=== PATIENT | male | born 1965 | race Caucasian/White ===

== ENCOUNTER 2017-03-02 21:16 | Emergency (ER) | payer OTHER ==
[~2017-03-02] VITALS: Ht 177.8 cm; Wt 122.5 kg
[2017-03-02 21:50] VITALS: BP_SYST 136
[2017-03-02] MEDS ORDERED: NACL 0.9% 1,000 ML IV ONE (22:23)
[2017-03-02] MEDS ORDERED: KETOROLAC TROMETHAMINE 30 MG VIAL IVP ONE (22:30)
[2017-03-02] MEDS ORDERED: ONDANSETRON HCL 4 MG/2 ML VIAL IVP ONE (22:30)
[2017-03-02 22:46] LABS: BILIRUBIN,URINE NEGATIVE (NEGATIVE); BLOOD, URINE NEGATIVE (NEGATIVE); CLARITY/URINE CLEAR (CLEAR); COLOR,URINE YELLOW (YELLOW); GLUCOSE,URINE 3+ (NEGATIVE); KETONES,URINE NEGATIVE (NEGATIVE); LEUKOCYTE ESTERASE ,URINE NEGATIVE (NEGATIVE); NITRITE, URINE NEGATIVE (NEGATIVE); PROTEIN URINE NEGATIVE (NEGATIVE); UROBILINOGEN,URINE 0.2 (0.2-1.0)
[2017-03-02 22:56] LABS: BACTERIA,URINE FEW /HPF (None Seen); RBC,URINE 0-3 /HPF (0-3); WBC,URINE 0-3 /HPF (0-3)
[2017-03-02 22:59] LABS: BASOPHILS % (AUTO) 0.3 % (0.0-2.0); EOSINOPHILS # (AUTO) 0.2 K/uL (0.0-0.4); EOSINOPHILS % (AUTO) 1.7 % (0.0-4.0); HEMATOCRIT 47.4 % (36-54); HEMOGLOBIN 15.7 g/dL (14.0-18.0); LYMPHOCYTES # (AUTO) 2.3 K/uL (1.0-5.5); LYMPHOCYTES % (AUTO) 18.9 % (20.5-51.5); MEAN CORPUSCULAR HEMOGLOBIN 32 pg (27-31); MEAN CORPUSCULAR HGB CONC 33 % (32-36); MEAN CORPUSCULAR VOLUME 97 fL (79.0-98.0); MONOCYTES # (AUTO) 0.7 K/uL (0.0-1.0); MONOCYTES % (AUTO) 6.1 % (1.7-9.3); NEUTROPHILS # (AUTO) 9.1 K/uL (1.8-7.7); PLATELET COUNT (AUTO) 190 K/uL (130-430); RED BLOOD CELL COUNT(AUTO) 4.89 MIL/uL (4.2-6.2); RED CELL DISTRIBUTION WIDTH 12.2 % (9.0-15.0); WHITE BLOOD COUNT (AUTO) 12.3 K/uL (4.8-10.8)
[2017-03-02 23:04] LABS: CALCIUM 9.3 mg/dL (8.4-11.0); CREATININE 0.87 mg/dL (0.55-1.30); POTASSIUM 3.6 mmol/L (3.5-5.1)
[2017-03-02 23:09] LABS: ALBUMIN 3.3 g/dL (3.4-4.8); TOTAL BILIRUBIN 0.3 mg/dL (0.0-1.0)
[2017-03-03 01:12] VITALS: BP_SYST 140
== END 2017-03-03 01:12 | disposition home or self-care (01) ==
LOC: SED 21:16
DX: N20.0 Calculus of kidney (principal); K57.32 Diverticulitis of large intestine without perforation or abscess without bleeding; R03.0 Elevated blood-pressure reading, without diagnosis of hypertension; Z87.442 Personal history of urinary calculi
CPT/HCPCS: 36415; 74176; 80053; 81000; 82962; 85025; 96361; 96374; 96375; 99285; J1885; J2405; J7030

== ENCOUNTER 2017-09-15 08:41 | Inpatient (IN) | payer MEDICAID, OTHER ==
[~2017-09-15] VITALS: Ht 177.8 cm; Wt 124.7 kg
[2017-09-15 08:41] VITALS: BP_SYST 154
[2017-09-15] MEDS ORDERED: ASPIRIN 81 MG TAB.CHEW PO ONE (09:15)
[2017-09-15 09:35] LABS: BASOPHILS # (AUTO) 0.1 K/uL (0.0-0.2); BASOPHILS % (AUTO) 1.6 % (0.0-2.0); EOSINOPHILS # (AUTO) 0.1 K/uL (0.0-0.4); EOSINOPHILS % (AUTO) 1.5 % (0.0-4.0); HEMOGLOBIN 16.1 g/dL (14.0-18.0); LYMPHOCYTES # (AUTO) 1.2 K/uL (1.0-5.5); LYMPHOCYTES % (AUTO) 14.9 % (20.5-51.5); MEAN CORPUSCULAR HEMOGLOBIN 34 pg (27-31); MEAN CORPUSCULAR HGB CONC 34 % (32-36); MEAN CORPUSCULAR VOLUME 98 fL (79.0-98.0); MONOCYTES # (AUTO) 0.5 K/uL (0.0-1.0); MONOCYTES % (AUTO) 5.9 % (1.7-9.3); NEUTROPHILS % (AUTO) 76.1 % (40.0-70.0); PLATELET COUNT (AUTO) 209 K/uL (130-430); RED BLOOD CELL COUNT(AUTO) 4.81 MIL/uL (4.2-6.2); RED CELL DISTRIBUTION WIDTH 12.1 % (9.0-15.0); WHITE BLOOD COUNT (AUTO) 7.9 K/uL (4.8-10.8)
[2017-09-15 09:38] LABS: CALCIUM 8.8 mg/dL (8.4-11.0); CREATININE 0.98 mg/dL (0.55-1.30)
[2017-09-15 09:44] LABS: ALBUMIN 3.3 g/dL (3.4-4.8); TOTAL BILIRUBIN 0.4 mg/dL (0.0-1.0)
[2017-09-15 09:48] LABS: PROTHROMBIN TIME 10.1 SECS (9.5-12.5)
[2017-09-15] MEDS ORDERED: CALCIUM GLUCONATE 1 GM/10 ML VIAL IVP ONE (11:15)
[2017-09-15] MEDS ORDERED: NITROGLYCERIN 0.4 MG TAB.SUBL SL PRN (11:15)
[2017-09-15 11:37] VITALS: BP_SYST 129
[2017-09-15 15:16] VITALS: BP_SYST 115
[2017-09-15] MEDS ORDERED: ACETAMINOPHEN 325 MG TABLET PO PRN (16:30)
[2017-09-15] MEDS ORDERED: FAMOTIDINE 20 MG TABLET PO ONE (16:30)
[2017-09-15] MEDS ORDERED: AZITHROMYCIN 250 MG TABLET PO ONE (16:45)
[2017-09-15] MEDS ORDERED: ZOLPIDEM TARTRATE 5 MG TABLET PO PRN (16:45)
[2017-09-15] MEDS ORDERED: IBUPROFEN 400 MG TABLET PO PRN (16:45)
[2017-09-15] MEDS: metFORMIN HCL 500 MG TABLET PO SCH (17:05)
[2017-09-15] MEDS: INSULIN ASPART 100 UNITS/ML, 10 ML VIAL (NovoLOG) SUBCUT PRN ×2 (17:13→21:46)
[2017-09-15] MEDS: IPRATROPIUM/ALBUTEROL SULFATE 3 ML AMPUL.NEB INH SCH (19:51)
[2017-09-15 19:58] VITALS: BP_SYST 115
[2017-09-15 20:30] VITALS: BP_SYST 130
[2017-09-15 22:16] LABS: BILIRUBIN,URINE NEGATIVE (NEGATIVE); BLOOD, URINE 3+ (NEGATIVE); CLARITY/URINE CLEAR (CLEAR); COLOR,URINE YELLOW (YELLOW); GLUCOSE,URINE NEGATIVE (NEGATIVE); KETONES,URINE NEGATIVE (NEGATIVE); LEUKOCYTE ESTERASE ,URINE NEGATIVE (NEGATIVE); NITRITE, URINE NEGATIVE (NEGATIVE); PROTEIN URINE NEGATIVE (NEGATIVE); UROBILINOGEN,URINE 0.2 (0.2-1.0)
[2017-09-15] MEDS: HYDROcodone/ACETAMIN 5-325 MG TAB (NORCO/ VICODIN) PO PRN (22:22)
[2017-09-15 22:23] LABS: BACTERIA,URINE FEW /HPF (None Seen); RBC,URINE >100 /HPF (0-3); WBC,URINE 0-3 /HPF (0-3)
[2017-09-15] MEDS ORDERED: DIPHENOXYLATE HCL/ATROP SULF 2.5 MG TAB PO ONE (22:30)
[2017-09-16 01:13] VITALS: BP_SYST 117
[2017-09-16] MEDS: INSULIN ASPART 100 UNITS/ML, 10 ML VIAL (NovoLOG) SUBCUT PRN ×2 (06:11→11:47)
[2017-09-16 06:25] LABS: BASOPHILS % (AUTO) 0.4 % (0.0-2.0); EOSINOPHILS # (AUTO) 0.2 K/uL (0.0-0.4); MONOCYTES # (AUTO) 0.7 K/uL (0.0-1.0)
[2017-09-16 06:52] LABS: EOSINOPHILS % (AUTO) 3.1 % (0.0-4.0); HEMATOCRIT 45.3 % (36-54); HEMOGLOBIN 15.6 g/dL (14.0-18.0); LYMPHOCYTES # (AUTO) 1.2 K/uL (1.0-5.5); LYMPHOCYTES % (AUTO) 15.7 % (20.5-51.5); MEAN CORPUSCULAR HEMOGLOBIN 34 pg (27-31); MEAN CORPUSCULAR HGB CONC 34 % (32-36); MEAN CORPUSCULAR VOLUME 97 fL (79.0-98.0); MONOCYTES % (AUTO) 9.4 % (1.7-9.3); NEUTROPHILS # (AUTO) 5.8 K/uL (1.8-7.7); NEUTROPHILS % (AUTO) 71.4 % (40.0-70.0); PLATELET COUNT (AUTO) 169 K/uL (130-430); RED BLOOD CELL COUNT(AUTO) 4.65 MIL/uL (4.2-6.2); RED CELL DISTRIBUTION WIDTH 12.4 % (9.0-15.0); WHITE BLOOD COUNT (AUTO) 7.9 K/uL (4.8-10.8)
[2017-09-16 06:55] LABS: ANION GAP 6 (5-15); CHLORIDE 105 mmol/L (98-107); GLUCOSE 174 mg/dL (70-99); POTASSIUM 4.1 mmol/L (3.5-5.1); SODIUM SERUM 138 mmol/L (136-145)
[2017-09-16 06:56] LABS: CALCIUM 8.7 mg/dL (8.4-11.0); CREATININE 0.85 mg/dL (0.55-1.30); GFR AFRICAN AMERICAN 123 mL/min (>90); UREA NITROGEN, BLOOD 11 mg/dL (8-21)
[2017-09-16 06:57] LABS: ALANINE AMINOTRANSFERASE 100 U/L (12-78); ALBUMIN 2.9 g/dL (3.4-4.8); ASPARTATE AMINOTRANSFERASE 46 U/L (10-37); BILIRUBIN,DIRECT 0.1 mg/dL (0.0-0.3); TOTAL BILIRUBIN 0.7 mg/dL (0.0-1.0)
[2017-09-16] MEDS: IPRATROPIUM/ALBUTEROL SULFATE 3 ML AMPUL.NEB INH SCH ×2 (07:12→15:10)
[2017-09-16 07:39] VITALS: BP_SYST 127
[2017-09-16 08:06] LABS: HEPATITIS A AB, IgM Negative (Negative); HEPATITIS B CORE AB, IgM Negative (Negative); HEPATITIS B SURFACE AG Negative (Negative)
[2017-09-16] MEDS ORDERED: AZITHROMYCIN 250 MG TABLET PO SCH (09:00)
[2017-09-16] MEDS ORDERED: ASPIRIN 81 MG TABLET(ECOTRIN) PO SCH (09:00)
[2017-09-16] MEDS ORDERED: FAMOTIDINE 20 MG TABLET PO SCH (09:00)
[2017-09-16 09:20] LABS: CHOLESTEROL 172 mg/dL (<200); HDL CHOLESTEROL 23 mg/dL (>45); LDL CHOLESTEROL 110 mg/dL (<100); TRIGLYCERIDES 281 mg/dL (30-150)
[2017-09-16] MEDS: metFORMIN HCL 500 MG TABLET PO SCH ×2 (10:00→17:30)
[2017-09-16 12:01] VITALS: BP_SYST 121
[2017-09-16] MEDS: HYDROcodone/ACETAMIN 5-325 MG TAB (NORCO/ VICODIN) PO PRN (13:47)
[2017-09-16 16:16] VITALS: BP_SYST 131
[2017-09-16 17:51] VITALS: BP_SYST 131
[2017-09-16] MEDS ORDERED: AZIT500T10 PO (18:09)
[2017-09-16] MEDS ORDERED: ASPI-1155 PO (18:10)
[2017-09-16] MEDS ORDERED: AZIT250T PO (18:10)
[2017-09-16] MEDS ORDERED: ALBMDI INH (18:11)
== END 2017-09-16 18:50 | disposition home or self-care (01) | DRG 203 ==
LOC: SED 08:41 → STU 11:07
PROVIDERS: ADMIT Internal Medicine; ATTEND Internal Medicine
DX: R07.89 Other chest pain (principal); E11.65 Type 2 diabetes mellitus with hyperglycemia; J42 Unspecified chronic bronchitis; J44.9 Chronic obstructive pulmonary disease, unspecified; E66.01 Morbid (severe) obesity due to excess calories; R94.5 Abnormal results of liver function studies; M17.0 Bilateral primary osteoarthritis of knee; F17.210 Nicotine dependence, cigarettes, uncomplicated; I49.1 Atrial premature depolarization; N20.0 Calculus of kidney; Z80.7 Family history of other malignant neoplasms of lymphoid, hematopoietic and related tissues; Z82.5 Family history of asthma and other chronic lower respiratory diseases; Z87.442 Personal history of urinary calculi; Z90.49 Acquired absence of other specified parts of digestive tract; Z71.6 Tobacco abuse counseling; Z68.39 Body mass index [BMI] 39.0-39.9, adult
CPT/HCPCS: 36415; 71045; 80048; 80053; 80061; 80074; 80076; 81000-TC; 82550-TC; 82962; 83036; 83735-TC; 83880; 84443-TC; 84484; 85025; 85610-TC; 85730-TC; 93005; 93017; 94640; 94760; 99285; J7620; Q0144

== ENCOUNTER 2017-12-20 08:24 | Emergency (ER) | payer MEDICAID ==
[~2017-12-20] VITALS: Ht 175.3 cm; Wt 122.5 kg
[~2017-12-20 08:24] MED LIST: ALBMDI INH; ASPI-1155 PO; AZIT250T PO
[2017-12-20 08:29] VITALS: BP_SYST 142
[2017-12-20] MEDS ORDERED: fentaNYL CITRATE/PF 100 MCG/2 ML AMP IM ONE (09:00)
[2017-12-20 09:37] VITALS: BP_SYST 142
== END 2017-12-20 09:34 | disposition home or self-care (01) ==
LOC: SED 08:24
DX: G89.29 Other chronic pain (principal); M54.2 Cervicalgia; R03.0 Elevated blood-pressure reading, without diagnosis of hypertension; E11.9 Type 2 diabetes mellitus without complications; Z87.442 Personal history of urinary calculi; Z79.82 Long term (current) use of aspirin; Z79.899 Other long term (current) drug therapy
CPT/HCPCS: 96372; 99283; J3010

== ENCOUNTER 2017-12-28 07:42 | Emergency (ER) | payer MEDICAID ==
[~2017-12-28] VITALS: Ht 175.3 cm; Wt 122.5 kg
[2017-12-28 07:45] VITALS: BP_SYST 106
[2017-12-28] MEDS ORDERED: MORPHINE 2 MG/ML INJ. SYRINGE IM ONE (08:30)
[2017-12-28] MEDS ORDERED: LORazepam 2 MG/ML VIAL (FOR ER USE) IM ONE (08:30)
[2017-12-28] MEDS ORDERED: MORPHINE 2 MG/ML INJ. SYRINGE IVP ONE (08:45)
[2017-12-28] MEDS ORDERED: NACL 0.9% 1,000 ML IV ONE (08:45)
[2017-12-28] MEDS ORDERED: LORazepam 2 MG/ML VIAL (FOR ER USE) IVP ONE (08:45)
[2017-12-28 10:00] VITALS: BP_SYST 139
== END 2017-12-28 10:00 | disposition home or self-care (01) ==
LOC: SED 07:42
DX: S16.1XXA Strain of muscle, fascia and tendon at neck level, initial encounter (principal); E11.9 Type 2 diabetes mellitus without complications; Z87.442 Personal history of urinary calculi; Z79.82 Long term (current) use of aspirin; Z79.899 Other long term (current) drug therapy; Z87.891 Personal history of nicotine dependence; X58.XXXA Exposure to other specified factors, initial encounter; Y93.89 Activity, other specified; Y92.89 Other specified places as the place of occurrence of the external cause; Y99.8 Other external cause status
CPT/HCPCS: 96374; 96375; 99283; J2060; J2270; J7030

== ENCOUNTER 2018-03-06 12:05 | Emergency (ER) | payer MEDICAID ==
[~2018-03-06] VITALS: Ht 175.3 cm; Wt 127.0 kg
[2018-03-06 12:05] VITALS: BP_SYST 150
== END 2018-03-06 14:43 | disposition home or self-care (01) ==
LOC: SED 12:05
DX: S86.912A Strain of unspecified muscle(s) and tendon(s) at lower leg level, left leg, initial encounter (principal); R03.0 Elevated blood-pressure reading, without diagnosis of hypertension; E11.9 Type 2 diabetes mellitus without complications; M19.90 Unspecified osteoarthritis, unspecified site; Z87.442 Personal history of urinary calculi; Z79.82 Long term (current) use of aspirin; Z79.899 Other long term (current) drug therapy; X50.9XXA Other and unspecified overexertion or strenuous movements or postures, initial encounter; Y93.01 Activity, walking, marching and hiking; Y92.89 Other specified places as the place of occurrence of the external cause; Y99.8 Other external cause status
CPT/HCPCS: 73564; 99283

== ENCOUNTER 2018-03-19 12:04 | Emergency (ER) | payer MEDICAID ==
[~2018-03-19] VITALS: Ht 175.3 cm; Wt 127.0 kg
--- NOTE | 2018-03-19 12:04 | NUR ---
BROUGHT BACK TO BED #4 AND TRIAGED.REPORT GIVEN TO MILAGROS
[2018-03-19 12:08] VITALS: BP_SYST 126
--- NOTE | 2018-03-19 12:45 | NUR ---
Pt arrived to ED with complaints of shoulder pain that radiates up to head and down the spine. Pt had pain shots in his neck on the 03/17/18 with no relief of pain. Pt is also concerned with his blood sugar that according to pt was 501 this am. Pt is resting in ED bed 4 with at bedside.
--- NOTE | 2018-03-19 13:02 | NUR ---
ER at bedside examining patient.
[2018-03-19] MEDS ORDERED: DIPHENHYDRAMINE INJ 50 MG/ML VIAL IVP ONE (13:15)
[2018-03-19] MEDS ORDERED: KETOROLAC TROMETHAMINE 30 MG VIAL IVP ONE (13:15)
[2018-03-19] MEDS ORDERED: MORPHINE 4 MG/ML INJ. SYRINGE IVP ONE (13:15)
[2018-03-19 13:52] LABS: BASOPHILS % (AUTO) 0.4 % (0.0-2.0); EOSINOPHILS # (AUTO) 0.1 K/uL (0.0-0.4); EOSINOPHILS % (AUTO) 0.7 % (0.0-4.0); HEMATOCRIT 45.5 % (36-54); HEMOGLOBIN 15.1 g/dL (14.0-18.0); LYMPHOCYTES # (AUTO) 2.3 K/uL (1.0-5.5); LYMPHOCYTES % (AUTO) 20.1 % (20.5-51.5); MEAN CORPUSCULAR HEMOGLOBIN 32 pg (27-31); MEAN CORPUSCULAR HGB CONC 33 % (32-36); MEAN CORPUSCULAR VOLUME 97 fL (79.0-98.0); MONOCYTES # (AUTO) 0.8 K/uL (0.0-1.0); NEUTROPHILS # (AUTO) 8.3 K/uL (1.8-7.7); NEUTROPHILS % (AUTO) 71.8 % (40.0-70.0); PLATELET COUNT (AUTO) 211 K/uL (130-430); RED CELL DISTRIBUTION WIDTH 12.7 % (9.0-15.0); WHITE BLOOD COUNT (AUTO) 11.5 K/uL (4.8-10.8)
[2018-03-19 14:09] LABS: CALCIUM 9.2 mg/dL (8.4-11.0); CREATININE 1.07 mg/dL (0.55-1.30); POTASSIUM 4.3 mmol/L (3.5-5.1)
[2018-03-19 14:13] LABS: INR 0.9 (0.80-1.20); PROTHROMBIN TIME 9.7 SECS (9.5-12.5)
[2018-03-19 14:26] LABS: ALBUMIN 3.4 g/dL (3.4-4.8); FREE T4 (FREE THYROXINE) 0.5 ng/dL (0.6-1.6); TOTAL BILIRUBIN 0.4 mg/dL (0.0-1.0)
--- NOTE | 2018-03-19 14:42 | NUR ---
Pt resting in bed with at bedside, pt stated "pain is tolerable" at this time
[2018-03-19] MEDS ORDERED: INSULIN REGULAR, HUMAN 10 UNITS/0.1 ML INJ IVP ONE (14:45)
[2018-03-19 15:41] VITALS: BP_SYST 143
--- NOTE | 2018-03-19 15:47 | NUR ---
Patient given written and verbal discharge instructions and verbalizes understanding. ER MD discussed with patient the results and treatment provided. Patient in stable condition. ID arm band removed. IV catheter removed intact and dressing applied, no active bleeding. Rx of Alcolu 5mg-325mg given. Patient educated on pain management and to follow up with PMD. Pain Scale 5/10, with a normal daily pain of 8-9. Opportunity for questions provided and answered. Medication side effect fact sheet provided.
== END 2018-03-19 15:41 | disposition home or self-care (01) ==
LOC: SED 12:04
DX: E11.65 Type 2 diabetes mellitus with hyperglycemia (principal); M19.90 Unspecified osteoarthritis, unspecified site; E78.00 Pure hypercholesterolemia, unspecified; Z90.49 Acquired absence of other specified parts of digestive tract; Z79.82 Long term (current) use of aspirin; Z79.899 Other long term (current) drug therapy
CPT/HCPCS: 36415; 80053; 83605; 83880; 84439; 84484; 85025; 85610; 87040; 96374; 96375; 99283; J1200; J1815; J1885; J2270

== ENCOUNTER 2018-12-24 23:52 | Emergency (ER) | payer MEDICAID ==
[~2018-12-24] VITALS: Ht 175.3 cm; Wt 120.2 kg
[2018-12-24 23:56] VITALS: BP_SYST 171
--- NOTE | 2018-12-24 23:56 | NUR ---
Placed in room 6 . Placed on threat monitoring analyst, blood pressure machine and pulse oximeter. To gown for exam. Side rails up. Report given to MAYRAM NEVAREZ.
--- NOTE | 2018-12-24 23:57 | NUR ---
Patient brought in complaining of sudden onset back pain starting at 1800 today with shortness of breath. Patient denies any trauma but has history of back sx and pulmonary embolism. Denies any nausea, vomiting or diarrhea. Pain 10/10. No other complaints/injuries per patient or as noted. will continue to monitor.
--- NOTE | 2018-12-25 | NUR ---
# 20 gauge angiocath placed to LAC. Use of asceptic technique. Opsite placed over site. Blood return noted. Blood for lab drawn from site. Flushed with 10 cc of normal saline. No evidence of infiltration noted. Patient tolerated well.
--- NOTE | 2018-12-25 00:41 | NUR ---
ER Dr. Crane at bedside examining patient.
[2018-12-25] MEDS ORDERED: fentaNYL CITRATE/PF 100 MCG/2 ML AMP IVP ONE (00:45)
[2018-12-25 00:48] LABS: BASOPHILS # (AUTO) 0.1 K/uL (0.0-0.2); BASOPHILS % (AUTO) 0.6 % (0.0-2.0); EOSINOPHILS # (AUTO) 0.3 K/uL (0.0-0.4); EOSINOPHILS % (AUTO) 2.9 % (0.0-4.0); HEMOGLOBIN 15.9 g/dL (14.0-18.0); LYMPHOCYTES # (AUTO) 2.6 K/uL (1.0-5.5); LYMPHOCYTES % (AUTO) 25.9 % (20.5-51.5); MEAN CORPUSCULAR HEMOGLOBIN 33 pg (27-31); MEAN CORPUSCULAR HGB CONC 35 % (32-36); MEAN CORPUSCULAR VOLUME 96 fL (79.0-98.0); MONOCYTES # (AUTO) 0.9 K/uL (0.0-1.0); MONOCYTES % (AUTO) 8.9 % (1.7-9.3); NEUTROPHILS # (AUTO) 6.3 K/uL (1.8-7.7); NEUTROPHILS % (AUTO) 61.7 % (40.0-70.0); PLATELET COUNT (AUTO) 219 K/uL (130-430); RED BLOOD CELL COUNT(AUTO) 4.82 MIL/uL (4.2-6.2); RED CELL DISTRIBUTION WIDTH 13.8 % (9.0-15.0); WHITE BLOOD COUNT (AUTO) 10.2 K/uL (4.8-10.8)
[2018-12-25 00:53] LABS: CALCIUM 9.1 mg/dL (8.4-11.0); CREATININE 1.13 mg/dL (0.55-1.30)
[2018-12-25 00:59] LABS: TOTAL BILIRUBIN 0.4 mg/dL (0.0-1.0)
[2018-12-25 01:20] LABS: PROTHROMBIN TIME 9.9 SECS (9.5-12.5)
--- NOTE | 2018-12-25 01:30 | NUR ---
Cloth Bleaching Supervisor at bedside for Chest Xray
--- NOTE | 2018-12-25 01:32 | NUR ---
MEdicated per md orders.
--- NOTE | 2018-12-25 01:44 | NUR ---
Patient off unit to Ultrasound
--- NOTE | 2018-12-25 01:51 | NUR ---
Patient was transported from Ultrasound to CT Scan via gurney. Patient tolerated well
[2018-12-25] MEDS ORDERED: IOHEXOL 350 mgI/mL, 150 ML INFUS..BTL IV ONE (01:55)
--- NOTE | 2018-12-25 02:32 | NUR ---
Patient complaining of muscle tightness to back. Patient requesting muscle relaxer. notified
--- NOTE | 2018-12-25 02:52 | NUR ---
VERBAL ORDER Verbal order for Valium 5 mg tablet orally once received from Dr. Crane. Order entered into [facility].
[2018-12-25] MEDS ORDERED: DIAZEPAM 5 MG TABLET (VALIUM) PO ONE (03:00)
--- NOTE | 2018-12-25 03:39 | NUR ---
Dr. Crane at bedside discussing results.
[2018-12-25 04:00] VITALS: BP_SYST 126
--- NOTE | 2018-12-25 04:00 | NUR ---
Patient given written and verbal discharge instructions and verbalizes understanding. ER MD discussed with patient the results and treatment provided. Patient in stable condition. ID arm band removed. IV catheter removed intact and dressing applied, no active bleeding. No Rx given. Patient educated on pain management and to follow up with in 2-4 days Pain Scale 0/10 Opportunity for questions provided and answered.
== END 2018-12-25 04:00 | disposition home or self-care (01) ==
LOC: SED 23:52
DX: M54.6 Pain in thoracic spine (principal); R06.02 Shortness of breath; F17.210 Nicotine dependence, cigarettes, uncomplicated; E11.9 Type 2 diabetes mellitus without complications; M79.662 Pain in left lower leg; Z79.899 Other long term (current) drug therapy; Z87.442 Personal history of urinary calculi
CPT/HCPCS: 36415; 71045; 71275; 72128; 72131; 80053; 82550; 83880; 84484; 85025; 85610; 85730; 93005; 93971; 96374; 99284; J3010; Q9967